=== PATIENT | female | born 1945 | race African-American/Black ===

== ENCOUNTER 2017-09-17 07:23 | Day surgery (SDC) | payer OTHER ==
[2017-09-16 10:48] VITALS: BMI 38.6
[2017-09-17] MEDS ORDERED: PROPOFOL 20 ML ONE ×2 (08:49)
[2017-09-17] MEDS ORDERED: ATROPINE SULFATE 1 MG/10 ML DISP.SYRIN ONE (09:33)
[2017-09-17 09:56] VITALS: TEMP 98.7
[2017-09-17 10:59] VITALS: BP 121/58; PULSE 67
--- NOTE | 2017-09-20 13:08 | PATH ---
Surgical Pathology Report Patient Name: KANDICE OLSEN [facility]. Rec. #: [id number] /Age/Gender: 1945 (Age: 72) / F Account: [id number] Location: [facility]SU-ENDOSCOPY Taken: 09/17/2017 Received: 09/17/2017 Reported: 09/20/2017 Physicians: Penny Karimi M.D. Specimen(s) Received A: PROXIMAL TRANSVERSE COLON POLYP B: BX RIGHT COLON POLYP C: BX CECAL POLYP D: BX SIGMOID POLYP Clinical History Preoperative diagnosis: Rectal bleeding Postoperative diagnosis: Colon polyps, diverticulosis Final Diagnosis A. PROXIMAL TRANSVERSE COLON, POLYP, POLYPECTOMY: TUBULAR ADENOMA. B. COLON, RIGHT, POLYP, BIOPSY: TUBULAR ADENOMA. C. CECUM, POLYP, BIOPSY: TUBULAR ADENOMA. D. SIGMOID COLON, POLYP, BIOPSY: HYPERPLASTIC POLYP. Electronically Signed Talya Oscar M.D. Gross Description A. Received in formalin, labeled "proximal transverse colon polyp" is a mendez, irregular portion of soft tissue measuring 0.5 cm. in greatest dimension. The specimen is submitted in toto in one cassette. B. Received in formalin, labeled "biopsy right colon polyp" are 4 mendez, irregular portions of soft tissue ranging from 0.2-0.5 cm. in greatest dimension. The specimens are submitted in toto in one cassette. C. Received in formalin, labeled "biopsy cecal polyp" is a mendez, irregular portion of soft tissue measuring 0.4 cm. in greatest dimension. The specimen is submitted in toto in one cassette. D. Received in formalin, labeled "biopsy sigmoid polyp" are 2 mendez, irregular portions of soft tissue measuring 0.1 and 0.4 cm. in greatest dimension. The specimens are submitted in toto in one cassette. 09/17/201709/17/2017
== END 2017-09-17 11:10 | disposition home or self-care (01) ==
LOC: JASU-ENDO 07:23
PROVIDERS: ATTEND Internal Medicine Gastroenterology
PROC: 0DBK8ZX Excision of Ascending Colon, Via Natural or Artificial Opening Endoscopic, Diagnostic (ICD-10-PCS; 2017-09-17)
PROC: 0DBH8ZX Excision of Cecum, Via Natural or Artificial Opening Endoscopic, Diagnostic (ICD-10-PCS; 2017-09-17)
PROC: 0DBL8ZX Excision of Transverse Colon, Via Natural or Artificial Opening Endoscopic, Diagnostic (ICD-10-PCS; principal; 2017-09-17 09:00)
DX: Z12.11 Encounter for screening for malignant neoplasm of colon (principal); Z83.71 Family history of colonic polyps; D12.2 Benign neoplasm of ascending colon; D12.0 Benign neoplasm of cecum; D12.3 Benign neoplasm of transverse colon; K57.30 Diverticulosis of large intestine without perforation or abscess without bleeding; K64.8 Other hemorrhoids
CPT/HCPCS: 88305-TC

== ENCOUNTER 2018-05-15 08:47 | Emergency (ER) | payer OTHER ==
[2018-05-15 08:57] VITALS: BP 150/56; PULSE 63; TEMP 97.4; BMI 37.8
--- NOTE | 2018-05-15 09:47 | PDOC ---
History of Present Illness - General Chief Complaint: Pain Stated Complaint: PAIN Time Seen by Provider: 05/15/18 09:12 - History of Present Illness Initial Comments: 05/15/18 09:42 CHIEF COMPLAINT: knee pain HISTORY OF PRESENT ILLNESS: 73 yo F with hx of L knee bursitis (followed by ortho MD Cook) and spinal stenosis presents to fast [facility] with same L knee pain she had this summer when diagnosed with bursitis. Patient states she was rxed Diclofenac but she has been taking it w/o relief, last dose this morning. Patient states her pain is localized to the anterior left knee and is worse with palpation. Denies calf pain, shortness of breath, chest pain. No recent travel or sick contacts. PAST MEDICAL HISTORY: Denies past medical history FAMILY HISTORY: Denies SOCIAL HISTORY: Denies tobacco, alcohol, illicit drug use. SURGICAL HISTORY: Denies ALLERGIES: No known drug allergies REVIEW OF SYSTEMS General/Constitutional: Denies fever or chills. Denies weakness, weight change. HEENT: Denies change in vision. Denies ear pain or discharge. Denies sore throat. Cardiovascular: Denies chest pain or shortness of breath. Respiratory: Denies cough, wheezing, or hemoptysis. Gastrointestinal: Denies nausea, vomiting, diarrhea or constipation. Denies rectal bleeding. Genitourinary: Denies dysuria, frequency, or change in urination. Musculoskeletal: L knee pain, worse with movement and palpation. Skin and breasts: Denies rash or easy bruising. Neurologic: Denies headache, vertigo, loss of consciousness, or loss of sensation. PHYSICAL EXAM General Appearance: Well-appearing, appropriately dressed. No apparent distress , no intoxication. HEENT: EOMI, PERRLA, normal ENT inspection, normal voice, TMs normal, pharynx normal. No conjunctival pallor. No photophobia, scleral icterus. Neck: Supple. Trachea midline. No tenderness, rigidity, carotid bruit, stridor , lymphadenopathy, or thyromegaly. Respiratory/Chest: Lungs CTAB. No shortness of breath, chest tenderness, respiratory distress, accessory muscle use. No crackles, rales, rhonchi, stridor , wheezing, dullness Cardiovascular: RRR. S1, S2. No JVD, murmur, bradycardia, tachycardia. Vascular Pulses: Dorsalis-Pedis (R): 2+, Dorsalis-Pedis (L): 2+ Gastrointestinal/Abdominal: Normal bowel sounds. Abdomen soft, non-distended. No tenderness or rebound tenderness. No organomegaly, pulsatile mass, guarding , hernia, hepatomegaly, splenomegaly. Lymphatic: No adenopathy, tenderness. Musculoskeletal/Extremities: Tenderness to L anterior knee, negative Kisha's sign. Normal inspection. FROM of all extremities, normal capillary refill. Pelvis Stable. No CVA tenderness. No tenderness to extremities, pedal edema, swelling, erythema or deformity. Integumentary: Appropriate color, dry, warm. No cyanosis, erythema, jaundice or rash Neurologic: associate sales representative II-XII intact. Fully oriented, alert. Appropriate mood/affect. Motor strength 5/5. No appreciable EOM palsy, facial droop or sensory deficit. Past History - Past Medical History Allergies/Adverse Reactions: Allergies Allergy/AdvReac Type Severity Reaction Status Date / Time No Known Allergies Allergy Verified 05/15/18 08:57 Home Medications: Ambulatory Orders Atorvastatin Calcium [Lipitor] 10 mg PO DAILY 09/16/17 Cholecalciferol (Vitamin D3) [Vitamin D3] 5,000 unit PO WEEKLY 09/16/17 Losartan/Hydrochlorothiazide [Hyzaar 100-25 Tablet] 1 each PO DAILY 09/16/17 Tramadol HCl 50 mg PO QID PRN #12 tablet MDD 4 05/15/18 Anemia: No Asthma: No Cancer: No Cardiac Disorders: No CVA: No COPD: No CHF: No Dementia: No Diabetes: No GI Disorders: No Disorders: No HTN: Yes Hypercholesterolemia: Yes Liver Disease: No Seizures: No Thyroid Disease: No - Surgical History Abdominal Surgery: No Appendectomy: No Cardiac Surgery: No Cholecystectomy: Yes (LAP) Lung Surgery: No Neurologic Surgery: No Orthopedic Surgery: Yes (KEVIN KNEE ARTHROSCOPY) - Immunization History Td Vaccination: Yes TDAP Vaccination: Yes Immunization Up to Date: No - Suicide/Smoking/Psychosocial Hx Smoking Status: No Smoking History: Never smoked Have you smoked in the past 12 months: No Number of Cigarettes Smoked Daily: 0 Hx Alcohol Use: No Drug/Substance Use Hx: No Substance Use Type: None Hx Substance Use Treatment: No *Physical Exam - Vital Signs Last Vital Signs Temp Pulse Resp BP Pulse Ox 97.4 F L 63 18 150/56 L 99 05/15/18 08:55 05/15/18 08:55 05/15/18 08:55 05/15/18 08:55 05/15/18 08:55 ED Treatment Course - RADIOLOGY Radiology Studies Ordered: Category Date Time Status KNEE 3 POS-LEFT [RAD] Stat Radiology 05/15/18 09:12 Taken Medical Decision Making - Medical Decision Making 05/15/18 09:47 73 yo F with hx of L knee bursitis (followed by ortho MD Cook) and spinal stenosis presents to fast track with L knee pain. -knee xray -Percocet *DC/Admit/Observation/Transfer Diagnosis at time of Disposition: Knee pain, chronic - Discharge Dispostion Disposition: HOME Condition at time of disposition: Stable - Prescriptions Prescriptions: Tramadol HCl 50 mg PO QID PRN #12 tablet MDD 4 PRN Reason: Pain - Referrals Referrals: Zhou Cook MD [Staff Physician] - Cesilia Nieves MD [Primary Care Provider] - - Patient Instructions Printed Discharge Instructions: DI for Knee Pain Additional Instructions: Please follow up with orthopedics this week as planned. If you develop any worsening pain, loss of sensation to your extremities, shortness of breath, increased swelling or warmth to your leg, or any new or worsening symptoms, please return to the ER. - Post Discharge Activity
== END 2018-05-15 10:01 | disposition home or self-care (01) ==
LOC: JERFT 08:47
DX: M25.562 Pain in left knee (principal); G89.29 Other chronic pain; M70.52 Other bursitis of knee, left knee; Y93.9 Activity, unspecified
CPT/HCPCS: 73562-TC-LT-FY; 99281-25

== ENCOUNTER 2021-09-26 09:45 | Emergency (ER) | payer OTHER ==
[2021-09-26 09:53] VITALS: BP 144/79; PULSE 68; TEMP 97.8; BMI 36.3
[2021-09-26] MEDS ORDERED: ACETAMINOPHEN 1000 MG/100 ML BAG IVPB ONE (10:24)
[2021-09-26] MEDS ORDERED: SODIUM CHLORIDE 0.9% 500 ML INFUS.BAG IV ONE (10:24)
[2021-09-26] MEDS ORDERED: ACETAMINOPHEN INJECTION 100 ML IVPB ONE (10:30)
[2021-09-26 11:11] LABS: BASO % 0.8 % (0-2.0); EOS % 2.7 % (0-4.5); HEMATOCRIT 42.7 % (32.4-45.2); HEMOGLOBIN 13.8 GM/dL (10.7-15.3); LYMPH % 29.2 % (8-40); MCH 27.1 pg (25.7-33.7); MCHC 32.4 g/dl (32.0-36.0); MEAN CELL VOLUME 83.7 fl (80-96); MEAN PLT VOLUME 8.2 fl (7.5-11.1); MONO % 8.8 % (3.8-10.2); NEUT % 58.5 % (42.8-82.8); PLATELET COUNT 265 10^3/uL (134-434); RBC 5.09 M/mm3 (3.60-5.2); RDW 13.8 % (11.6-15.6); WHITE BLOOD COUNT 5.6 K/mm3 (4.0-10.0)
[2021-09-26 11:13] LABS: EPI CELLS >36 /uL (0-25.1); HYALINE CASTS 25 /uL (0-3.1); URINE APPEARANCE CLOUDY; URINE BACTERIA 2545 /uL (0-1359); URINE BILIRUBIN NEGATIVE (NEGATIVE); URINE COLOR YELLOW; URINE GLUCOSE (UA) NEGATIVE (NEGATIVE); URINE KETONE TRACE (NEGATIVE); URINE LEUK ESTERASE 2+ (NEGATIVE); URINE NITRITE NEGATIVE (NEGATIVE); URINE PROTEIN TRACE (NEGATIVE); URINE RBC 20 /uL (0-23.9); URINE WBC 475 /uL (0-25.8)
[2021-09-26 11:37] LABS: ALBUMIN 3.8 g/dl (3.4-5.0); CALCIUM 9.5 mg/dL (8.5-10.1)
[2021-09-26 11:43] LABS: BILIRUBIN,TOTAL 0.5 mg/dL (0.2-1); TOT PROT 7.3 g/dl (6.4-8.2)
== END 2021-09-26 14:04 | disposition home or self-care (01) ==
LOC: JER 09:45
PROC: 3E033NZ Introduction of Analgesics, Hypnotics, Sedatives into Peripheral Vein, Percutaneous Approach (ICD-10-PCS; principal; 2021-09-26)
DX: N30.00 Acute cystitis without hematuria (principal)
CPT/HCPCS: 36415; 71046-TC-FY; 74177-TC; 80053; 81003; 83690; 85025; 87086; 99285-25; Q9967

== ENCOUNTER 2021-12-05 04:47 | Day surgery (SDC) | payer OTHER ==
[2021-12-02 14:34] VITALS: BMI 37.3
[2021-12-05 11:33] VITALS: BP 121/51; PULSE 73; TEMP 98.3
== END 2021-12-05 10:55 | disposition home or self-care (01) ==
LOC: JASU-ENDO 04:47
PROVIDERS: ATTEND Internal Medicine Gastroenterology
PROC: 0DBL8ZX Excision of Transverse Colon, Via Natural or Artificial Opening Endoscopic, Diagnostic (ICD-10-PCS; 2021-12-05)
PROC: 0DB98ZX Excision of Duodenum, Via Natural or Artificial Opening Endoscopic, Diagnostic (ICD-10-PCS; 2021-12-05)
PROC: 0DB68ZX Excision of Stomach, Via Natural or Artificial Opening Endoscopic, Diagnostic (ICD-10-PCS; 2021-12-05)
PROC: 0DBK8ZX Excision of Ascending Colon, Via Natural or Artificial Opening Endoscopic, Diagnostic (ICD-10-PCS; principal; 2021-12-05 09:00)
DX: Z12.11 Encounter for screening for malignant neoplasm of colon (principal); D12.2 Benign neoplasm of ascending colon; D12.3 Benign neoplasm of transverse colon; K57.30 Diverticulosis of large intestine without perforation or abscess without bleeding; K64.8 Other hemorrhoids; K29.80 Duodenitis without bleeding; K29.50 Unspecified chronic gastritis without bleeding; Z86.010 Personal history of colon polyps; Z80.0 Family history of malignant neoplasm of digestive organs
CPT/HCPCS: 88305-TC; 88342-TC